=== PATIENT | male | born 1955 | race American Indian/Alaskan Native ===

== ENCOUNTER 2017-03-28 12:57 | Inpatient (IN) | payer BC ==
[~2017-03-28] VITALS: Ht 170.2 cm; Wt 79.8 kg
[~2017-03-28 12:57] MED LIST: LEVO750T45 PO; METF-716 PO; SULF1TAB48 PO
[2017-03-28 13:00] VITALS: BP 94/61; PULSE 96; RESP 18; TEMP 97.6; O2SAT 98
--- NOTE | 2017-03-28 13:00 | NUR ---
PT. PLACED IN ROOM 6 REPORT GIVEN TO VIKI JULIEN
--- NOTE | 2017-03-28 13:05 | NUR ---
Pt placed to ER bed 06 and to gown. Pt here to have diabetic wound checked to Right foot. Pt states that he was seen by the Orthopedist on 03/25/17 and dsg was applied. Dsg removed, dry serosanguinous fluid noted to dsg. Wound to plantar aspect of foot measures 4 x 5 cm, undermining noted. Pt has no feeling to site.
--- NOTE | 2017-03-28 13:10 | NUR ---
Simona boo in ED - 03/28/17 at [address] Menendez at bedside to assess pt.
--- NOTE | 2017-03-28 13:10 | NUR ---
# 18 gauge angiocath placed to LAC. Use of asceptic technique. Opsite placed over site. Blood return noted. Blood for lab drawn from site. Flushed with 10 cc of normal saline. No evidence of infiltration noted. Patient tolerated well.
--- NOTE | 2017-03-28 13:10 | NUR ---
Dr. Rodgers at bedside to assess pt.
--- NOTE | 2017-03-28 13:15 | NUR ---
Wound cx obtained and sent to lab.
[2017-03-28 13:43] LABS: BASOPHILS # (AUTO) 0.1 K/uL (0.0-0.2); BASOPHILS % (AUTO) 0.7 % (0.0-2.0); EOSINOPHILS % (AUTO) 0.1 % (0.0-4.0); HEMATOCRIT 46.3 % (36-54); LYMPHOCYTES % (AUTO) 8.7 % (20.5-51.5); MEAN CORPUSCULAR HEMOGLOBIN 30 pg (27-31); MEAN CORPUSCULAR HGB CONC 33 % (32-36); MEAN CORPUSCULAR VOLUME 93 fL (79.0-98.0); MONOCYTES # (AUTO) 0.4 K/uL (0.0-1.0); MONOCYTES % (AUTO) 3.7 % (1.7-9.3); NEUTROPHILS # (AUTO) 9.9 K/uL (1.8-7.7); NEUTROPHILS % (AUTO) 86.8 % (40.0-70.0); PLATELET COUNT (AUTO) 225 K/uL (130-430); RED BLOOD CELL COUNT(AUTO) 4.96 MIL/uL (4.2-6.2); RED CELL DISTRIBUTION WIDTH 12.2 % (9.0-15.0); WHITE BLOOD COUNT (AUTO) 11.4 K/uL (4.8-10.8)
[2017-03-28 13:47] LABS: CALCIUM 8.5 mg/dL (8.4-11.0); CREATININE 1.25 mg/dL (0.55-1.30); POTASSIUM 3.6 mmol/L (3.5-5.1)
[2017-03-28 13:51] LABS: ALBUMIN 2.5 g/dL (3.4-4.8); INR 1.1 (0.80-1.20); PROTHROMBIN TIME 11.9 SECS (9.5-12.5); TOTAL BILIRUBIN 0.6 mg/dL (0.0-1.0); TOTAL PROTEIN, SERUM 7.7 g/dL (6.4-8.3)
--- NOTE | 2017-03-28 14:00 | NUR ---
Medication reconciliation completed with information provided by patient. Any prior medication reconciliation on file was reviewed and corrected.
[2017-03-28] MEDS ORDERED: PIPERACILLIN/TAZO 3.375 GM in NS 50 ML IV ONE (14:15)
[2017-03-28] MEDS ORDERED: NACL 0.9% 1,000 ML IV ONE (14:15)
[2017-03-28] MEDS ORDERED: VANCOMYCIN HCL 1,000 MG in NS 250 ML IV ONE (14:15)
[2017-03-28] MEDS ORDERED: VANCOMYCIN HCL 1000 MG/VIAL IV ONE (14:29)
[2017-03-28] MEDS ORDERED: PIPERACILLIN/TAZOBACTAM 3.375 GM/VIAL (ZOSYN) IV ONE (14:30)
--- NOTE | 2017-03-28 14:30 | NUR ---
Pt resting comfortably, denies c/o pain or discomfort, no needs verbalized at this time.
[2017-03-28] MEDS ORDERED: DOXY-4 PO (14:55)
[2017-03-28] MEDS ORDERED: METF1000 PO (14:55)
[2017-03-28] MEDS ORDERED: HYDR-1189 PO (14:55)
[2017-03-28] MEDS ORDERED: LISI-209 PO (14:55)
[2017-03-28] MEDS ORDERED: LIP40 PO (14:55)
[2017-03-28] MEDS ORDERED: AMI200 PO (14:55)
--- NOTE | 2017-03-28 15:10 | NUR ---
Patient will be admitted to care of Dr. Ernandez. Admitted to Med/Surg unit. Will go to room 102B. Belongings list completed. Summary report printed. Report will be given at bedside.
[2017-03-28 15:15] LABS: BILIRUBIN,URINE NEGATIVE (NEGATIVE); BLOOD, URINE 2+ (NEGATIVE); CLARITY/URINE CLEAR (CLEAR); COLOR,URINE YELLOW (YELLOW); GLUCOSE,URINE 3+ (NEGATIVE); KETONES,URINE 1+ (NEGATIVE); LEUKOCYTE ESTERASE ,URINE NEGATIVE (NEGATIVE); NITRITE, URINE NEGATIVE (NEGATIVE); PROTEIN URINE 2+ (NEGATIVE); UROBILINOGEN,URINE 0.2 (0.2-1.0)
[2017-03-28 15:31] VITALS: BP 136/75; PULSE 94; RESP 18; TEMP 95.9; O2SAT 99
[2017-03-28 15:34] LABS: BACTERIA,URINE RARE /HPF (None Seen); RBC,URINE 20-50 /HPF (0-3); WBC,URINE 0-3 /HPF (0-3)
--- NOTE | 2017-03-28 15:49 | NUR ---
Consult was called Re: Diabetic Foot Ulcer spoke with Ny from Dr Whitley office .
--- NOTE | 2017-03-28 16:16 | NUR ---
Consult was called Re:Diabetic Foot Ulcer spoke with Dr Shahbaz henriquez .
[2017-03-28 16:31] VITALS: BP 132/72; PULSE 92; RESP 17; TEMP 97.4; O2SAT 99
[2017-03-28] MEDS ORDERED: ACETAMINOPHEN 325 MG TABLET PO PRN (19:30)
[2017-03-28] MEDS ORDERED: NACL 0.9% 1,000 ML IV SCH (19:30)
[2017-03-28] MEDS ORDERED: DEXTROSE 50% JECT 50 ML DISP.SYRIN IVP PRN (19:30)
[2017-03-28] MEDS ORDERED: MORPHINE 2 MG/ML INJ. SYRINGE IVP PRN (19:30)
[2017-03-28] MEDS ORDERED: MORPHINE 4 MG/ML INJ. SYRINGE IVP PRN (19:30)
--- NOTE | 2017-03-28 20:00 | NUR ---
NOTES; SEEN PT IN BED, A/A/O X3. NO ACUTE DISTRESS NOTED. VITAL SIGNS STABLE, AFEBRILE. IV SALINE LOCK TO THE LEFT AC, PATENT. WILL START ORDERED IVF. RT FOOT WOUND WITH DRESSING CLEAN,DRY, AND INTACT. PEDAL PULSES PALPABLE. PT DENIES ANY PAIN AT THIS TIME. INSTRUCTED PT ON THE USE OF CALL LIGHT. PT VERBALIZED UNDERSTANDING. BED LOCKED AND IN LOW POSITION, SIDE RAILS UP X3, BED ALARM ON. CALL LIGHT WITHIN REACH. WILL CONTINUE TO MONITOR.
[2017-03-28] MEDS: LACTOBACILLUS RHAMNOSUS GG 1 CAP CAPSULE PO SCH (20:40)
[2017-03-28] MEDS: INSULIN REGULAR, HUMAN 100 UNITS/ML, 10 ML VIAL (novoLIN R) SUBCUT PRN (21:02)
--- NOTE | 2017-03-28 21:08 | NUR ---
NOTES; BLOOD SUGAR FOUND TO BE 275. ORDERED INSULIN ADMINISTERED PER SLIDING SCALE ORDER. SCHEDULED PO MEDICATION ADMINISTERED. PT TOLERATED MEDS WELL.
--- NOTE | 2017-03-28 21:09 | NUR ---
NOTES; OFFERED SANDWICH, PT REFUSED. MILK PROVIDED, PT DRANK ALL. INSTRUCTED PT TO USE CALL LIGHT TO CALL FOR ANY NEED TO ASSIST. T VERBALIZED UNDERSTANDING. BED LOCKED AND IN LOW POSITION, SIDE RAILS UP X3. BED ALARM ON. CALL LIGHT WITHIN REACH. WILL CONTINUE TO MONITOR.
--- NOTE | 2017-03-28 22:00 | NUR ---
NOTES: pt. sleeping when checked. IVF disconnected, due IVPB . check IV site and unable to flush, infiltrated. pt. awakened, awkae, alert, oriented. noted dressing on rt. foot. denies any discomfort at this time, feels cold, will adjust room temperature. call light within reach.
[2017-03-28] MEDS: PIPERACILLIN/TAZO 3.375/DEX-IS 50 ML IV SCH (22:20)
--- NOTE | 2017-03-28 22:30 | NUR ---
NOTES: started new IV on left hand with gauge 20 and IVF NS restarted at 100 cc/hr. Due IV antibiotics given. pt. resting comfortably with warm blanket.
[2017-03-28] MEDS: VANCOMYCIN HCL 750 MG in NS 250 ML IV SCH (22:31)
[2017-03-28 23:18] VITALS: BP 142/84; PULSE 132; RESP 16; TEMP 99.6; O2SAT 94
[2017-03-29] VITALS (7 sets, daily range): BP systolic 95–143; BP diastolic 56–81; PULSE 68–129; RESP 16–22; TEMP 97.2–100.9; O2SAT 94–100; Ht 170.2 cm; Wt 79.8 kg
[2017-03-29] MEDS ORDERED: D5NS 1,000 ML IV SCH
--- NOTE | 2017-03-29 00:20 | NUR ---
NOTES; DR. LAMBERT CALLED WITH ORDERS TO KEEP PT NPO AND CHANGE IVF TO D5NS AT 100CC/HR. RN COVERING AND CHARGE NURSE NOTIFIED.
--- NOTE | 2017-03-29 00:22 | NUR ---
paged paged for Dr Ernandez, dialed . s/w Dalia.
--- NOTE | 2017-03-29 00:25 | NUR ---
NOTES; PT INFORMED TO NOT EAT ANY FOOD OR DRINK ANY LIQUID DUE TO POSSIBLE RT FOOT SURGERY IN AM. PT VERBALIZED UNDERSTANDING. PT IS NPO AT THIS TIME.
--- NOTE | 2017-03-29 00:43 | NUR ---
paged second page for Dr Ernandez, dialed . s/w Dalia.
--- NOTE | 2017-03-29 01:14 | NUR ---
NOTES; PT HAS A TEMP OF 100.9, HR 129. PT IS SHIVERING, REFUSING COOLING MEASURES. RN COVERING NOTIFIED, PRN ORDER OF TYLENOL WITH NO INDICATION OF FEVER. DR SAUNDERS PAGED TO BE NOTIFIED. WAITING MD TO CALL BACK.
--- NOTE | 2017-03-29 01:22 | NUR ---
NOTES; PER DR. CHIP FONSECA TO GIVE PT TYLENOL WITH SMALL SIP OF WATER.
--- NOTE | 2017-03-29 01:22 | NUR ---
NOTES; DR. SAUNDERS CALLED BACK. INFORMED MD ABOUT PT ELEVATED TEMPERATURE OF 100.9 AND HR OF 129. TYLENOL 650MG PO FOR 100.5 FEVER AND ABOVE OR MILD PAIN LEVEL OF 1-3.
[2017-03-29] MEDS ORDERED: ACETAMINOPHEN 325 MG TABLET PO PRN (01:45)
--- NOTE | 2017-03-29 02:00 | NUR ---
ROUNDS: pt. sleeping when made rounds, covered with blanket. denies any pain at this time.
--- NOTE | 2017-03-29 02:50 | NUR ---
NOTES; TEMPERATURE IS 98.0
[2017-03-29] MEDS: PIPERACILLIN/TAZO 3.375/DEX-IS 50 ML IV SCH ×4 (03:37→17:30)
--- NOTE | 2017-03-29 04:00 | NUR ---
NOTES; PT APPEARED TO BE SLEEPING, EYES CLOSED. RESPIRATION EVEN AND UNLABORED. SAFETY MEASURES IN PROGRESS.
[2017-03-29] MEDS: INSULIN REGULAR, HUMAN 100 UNITS/ML, 10 ML VIAL (novoLIN R) SUBCUT PRN ×3 (05:54→16:57)
--- NOTE | 2017-03-29 05:58 | NUR ---
paged paged for Dr Ernandez, dialed . s/w Lorenzo.
--- NOTE | 2017-03-29 06:13 | NUR ---
NOTES; CRITICAL BLOOD CULTURE RESULTS RECEIVED. DR SAUNDERS PAGED TO BE NOTIFIED. BLOOD SUGAR FOUND TO BE 272. INSULIN ADMINISTERED PER SLIDING SCALE ORDER.
--- NOTE | 2017-03-29 06:36 | NUR ---
NOTES; DR SAUNDERS CALLED BACK. SPOKE WITH MD AND INFORMED MD ABOUT POSITIVE BLOOD CULTURE GRAM POSITIVE COCCI IN CHAINS IN AEROBIC AND ANAEROBIC BOTTLE. NEW ORDER OF VANCOMYCIN 1GM IVPB EVERY 12HRS RECEIVED. RN COVERING AND CHARGE NURSE NOTIFIED. .
[2017-03-29] MEDS ORDERED: VANCOMYCIN HCL 1 GM/NS PREMIX 250 ML IV SCH (06:45)
--- NOTE | 2017-03-29 07:15 | NUR ---
Initial notes: pt on bed sleeping. stable. i.v. access patent. call light within reach. report received from date night caregiver.
--- NOTE | 2017-03-29 07:30 | NUR ---
Wolf rounds: Seen by Dr. Hartmann and talk to pt.
--- NOTE | 2017-03-29 09:02 | NUR ---
Nutrition Update Kavon Scale 17 noted. Pt admitted for diabetic foot ulcer. Diet: NPO BMI: 27.7 kg/m2 RD to follow per nutrition care standards.
[2017-03-29] MEDS: LACTOBACILLUS RHAMNOSUS GG 1 CAP CAPSULE PO SCH ×2 (09:16→21:06)
[2017-03-29] MEDS: VANCOMYCIN HCL 750 MG in NS 250 ML IV SCH ×2 (09:16→21:06)
[2017-03-29] MEDS: ATORVASTATIN 20 MG TABLET PO SCH (09:16)
[2017-03-29] MEDS: AMIODARONE HCL 200 MG TABLET PO SCH (09:17)
--- NOTE | 2017-03-29 09:30 | NUR ---
Wolf rounds: seen by Dr. Ernandez and talk to pt.
[2017-03-29] MEDS: LISINOPRIL 5 MG TABLET PO SCH (09:31)
--- NOTE | 2017-03-29 10:12 | NUR ---
ID Consult: for Dr. Caraballo, regarding sepsis, ordered by Dr. Ernandez, spoke with Monique.
[2017-03-29 10:29] LABS: CREATININE 1.19 mg/dL (0.55-1.30); POTASSIUM 3.1 mmol/L (3.5-5.1)
[2017-03-29 10:34] LABS: ALBUMIN 2.1 g/dL (3.4-4.8); TOTAL BILIRUBIN 0.5 mg/dL (0.0-1.0); TOTAL PROTEIN, SERUM 6.9 g/dL (6.4-8.3)
--- NOTE | 2017-03-29 11:00 | NUR ---
CTA: pt went to radiology lab for CTA lower extremity wth/without contrast. Addendum: 03/29/17 at 1303 by Elizabeth Duncan RN consent signed by the pt.
[2017-03-29] MEDS ORDERED: IOHEXOL 350 mgI/mL, 150 ML INFUS..BTL IV ONE (11:28)
--- NOTE | 2017-03-29 12:58 | NUR ---
ATTENDING , DR SAUNDERS CALLED RE: LOW K LEVEL (3.1). SPOKE TO LUANA
--- NOTE | 2017-03-29 13:00 | NUR ---
lab result: paged Dr. Ernandez for low potassium. waiting for call back.
--- NOTE | 2017-03-29 13:13 | NUR ---
rounds: back in his room. MRI done also.
--- NOTE | 2017-03-29 14:13 | NUR ---
rounds: pt on bed watching t.v. no distress noted.
--- NOTE | 2017-03-29 15:05 | NUR ---
Wolf rounds: seen by Dr. Whitley and talk to pt and family.
[2017-03-29] MEDS: POTASSIUM CHLORIDE 20 MEQ TAB.PRT.SR PO SCH ×2 (16:02→21:06)
[2017-03-29] MEDS: KCL 20 mEq in NS 1000 mL 1,000 ML IV SCH (16:02)
--- NOTE | 2017-03-29 17:33 | NUR ---
rounds: pt on bed watching. t.v. with daughter at bedside.
--- NOTE | 2017-03-29 18:57 | NUR ---
closing notes: pt on bed resting. stable. needs attended. call light within reach. report will be given to shift mgr.
--- NOTE | 2017-03-29 19:45 | NUR ---
INITIAL NOTE PT. RECEIVED AA0X4, NO S/S OF SOB OR DISTRESS NOTED. BLOOD PRESSURE IS ON THE LOWER END, 95/60, PLACED PT. IN THE [place] POSITION AND WILL MONITOR CLOSELY FOR ANY CHANGES. IV ACCESS TO LEFT FOREARM. NO REDNESS OR SWELLING TO THE SITE. IV FLUIDS INFUSING WELL ORDERED. DIABETIC ULCER TO RIGHT FOOT NOTED WITH DRESSING THAT IS CLEAN, DRY AND INTACT. WILL CLEAN WOUND AND CHANGE DRESSING NECESSARY. ELEVATED PT. HEELS ON A PILLOW TO OFFLOAD PRESSURE AREAS. PLAN OF CARE HAS BEEN DISCUSSED. PT. AWARE THAT HE SHOULD BE NPO PAST MIDNIGHT FOR UPCOMING PROCEDURE TOMORROW. ENCOURAGED PT. TO USE CALL LIGHT AND CALL FOR ANY ASSISTANCE. VERBALIZES UNDERSTANDING. WILL CONT. TO MONITOR FOR ANY CHANGES. SAFETY AND FALL PRECAUTIONS IN PLACE. CALL LIGHT IN REACH.
[2017-03-29] MEDS ORDERED: COMMUNICATION ORDER XX ONE (21:30)
--- NOTE | 2017-03-29 22:05 | NUR ---
rounds pt. provided with turkey sandwich. no complaints of pain at this time. pt. aware of need to be npo past midnight. will cont. to monitor for changes. safety and fall precautions in place. call light in reach.
--- NOTE | 2017-03-29 23:19 | NUR ---
rn notes pt. resting in bed watching television. no s.s of sob or distress noted. report given to lyn jones who will resume care of pt. all needs met at this time. safety and fall precautions in place.
--- NOTE | 2017-03-29 23:20 | NUR ---
i have assumed the care of the pt.for the remainder of the shift.anna provided the pt's report pt.to submit to surgery in the am:03/30/17 per :rt.foot diabetic ulcer.i will review the pre-op paper work.iv fluids infusing.reiterated to the pt.that the pre-op diet is nothing by mouth.no pain, nausea@this hour.
[2017-03-30] VITALS (7 sets, daily range): BP systolic 90–130; BP diastolic 52–73; PULSE 80–94; RESP 18–22; TEMP 96.9–99; O2SAT 93–98
--- NOTE | 2017-03-30 | NUR ---
pt.assessed.v/s assessed:values w/in normal limits.no c/o pain,nausea.pt.is ambulatory.iv fluids infusing/pt/presents stable staus:room air:o2 sat%=98%.federico light w/in pt's reach.jb,paramjit vidal. Addendum: 03/30/17 at 0642 by Gil Weeks RN ivpb;abx administered.
[2017-03-30] MEDS: PIPERACILLIN/TAZO 3.375/DEX-IS 50 ML IV SCH ×3 (00:11→12:37)
--- NOTE | 2017-03-30 02:00 | NUR ---
pt.assessed.pt.presents quiescent affect;calm,asleep.no distres/discomfort manifested. call light w/in pt's reach.
--- NOTE | 2017-03-30 04:00 | NUR ---
pt.assessed.v/s assessed.values w/in normal limits.i have assisted the pt.to the restroom . gait steady.chg bath attended to for surgery this am.
[2017-03-30] MEDS: KCL 20 mEq in NS 1000 mL 1,000 ML IV SCH ×3 (05:15→21:18)
--- NOTE | 2017-03-30 06:32 | NUR ---
pt.prepared for surgery.ekg,labs ordered.paper work attended to.laura erazo;rn assisted w/the paper work. blood glucose:204mg/dl this am.i have applied the allergy band. Addendum: 03/30/17 at 0642 [place] [id number] am abx;ivpb administered.
--- NOTE | 2017-03-30 07:30 | NUR ---
Initial Note Patient A/O x4. Respirations even and unlabored. IV access patent; infusing per MD orders. Use of call light reviewed with patient. Encouraged patient to call for assistance when needed. Fall and safety precautions in place.
[2017-03-30] MEDS ORDERED: DEXAMETHASONE SOD PHOSPHATE 4 MG/ML VIAL IVP ONE (08:00)
[2017-03-30 08:02] LABS: BASOPHILS % (AUTO) 0.5 % (0.0-2.0); EOSINOPHILS # (AUTO) 0.1 K/uL (0.0-0.4); EOSINOPHILS % (AUTO) 1.1 % (0.0-4.0); HEMATOCRIT 39.2 % (36-54); LYMPHOCYTES # (AUTO) 1.1 K/uL (1.0-5.5); LYMPHOCYTES % (AUTO) 16.5 % (20.5-51.5); MEAN CORPUSCULAR HEMOGLOBIN 31 pg (27-31); MEAN CORPUSCULAR HGB CONC 33 % (32-36); MEAN CORPUSCULAR VOLUME 94 fL (79.0-98.0); MONOCYTES # (AUTO) 0.8 K/uL (0.0-1.0); MONOCYTES % (AUTO) 11.8 % (1.7-9.3); NEUTROPHILS # (AUTO) 4.9 K/uL (1.8-7.7); NEUTROPHILS % (AUTO) 70.1 % (40.0-70.0); PLATELET COUNT (AUTO) 200 K/uL (130-430); RED BLOOD CELL COUNT(AUTO) 4.18 MIL/uL (4.2-6.2); RED CELL DISTRIBUTION WIDTH 12.7 % (9.0-15.0); WHITE BLOOD COUNT (AUTO) 6.9 K/uL (4.8-10.8)
[2017-03-30 08:05] LABS: INR 1.1 (0.80-1.20); PROTHROMBIN TIME 11.4 SECS (9.5-12.5)
--- NOTE | 2017-03-30 08:08 | NUR ---
Notes Patient transported to OR for surgery. No acute distress noted.
[2017-03-30 08:10] LABS: POTASSIUM 4.2 mmol/L (3.5-5.1)
[2017-03-30 08:11] LABS: CREATININE 1.03 mg/dL (0.55-1.30)
[2017-03-30] MEDS: POTASSIUM CHLORIDE 20 MEQ TAB.PRT.SR PO SCH ×2 (09:00→15:41)
[2017-03-30] MEDS: LISINOPRIL 5 MG TABLET PO SCH (09:00)
[2017-03-30] MEDS ORDERED: ASPIRIN 325 MG TABLET (ECOTRIN) PO ONE (10:30)
[2017-03-30] MEDS ORDERED: CILOSTAZOL 50 MG TABLET (PLETAL) PO ONE (10:30)
[2017-03-30] MEDS ORDERED: LR 1,000 ML IV SCH (10:37)
[2017-03-30] MEDS ORDERED: HYDROmorphone 1 MG INJ. 1 MG/ML AMPUL IVP PRN (10:45)
[2017-03-30] MEDS ORDERED: MEPERIDINE HCL/PF 25 MG/ML DISP.SYRIN IVP PRN (10:45)
[2017-03-30] MEDS ORDERED: HYDROmorphone 2 MG/ML VIAL IVP PRN ×2 (10:45)
--- NOTE | 2017-03-30 11:51 | NUR ---
Notes Patient back in room. A/O x 4. Respirations even and unlabored. Incentive spirometer and teaching provided by RT. Patient able to provide return demonstration correctly and achieved 1999. Denies acute pain. Pedal pulses present with use of Doppler. Patient verbalizes having sensation to bilateral lower extremities. Dressing to right foot; clean, free of drainage. Encouraged patient to call for assistance when needed. Call light in reach.
[2017-03-30] MEDS: ATORVASTATIN 20 MG TABLET PO SCH (12:40)
[2017-03-30] MEDS: LACTOBACILLUS RHAMNOSUS GG 1 CAP CAPSULE PO SCH ×2 (12:40→21:01)
[2017-03-30] MEDS: AMIODARONE HCL 200 MG TABLET PO SCH (12:41)
[2017-03-30] MEDS: VANCOMYCIN HCL 750 MG in NS 250 ML IV SCH (12:48)
[2017-03-30] MEDS: INSULIN REGULAR, HUMAN 100 UNITS/ML, 10 ML VIAL (novoLIN R) SUBCUT PRN ×3 (12:57→20:59)
--- NOTE | 2017-03-30 14:39 | NUR ---
Notes Patient continues to deny pain. Sensation intact to bilateral lower extremities. Patient able to wiggle toes. Bilateral lower extremities warm to touch.
--- NOTE | 2017-03-30 16:01 | NUR ---
Notes Patient continues to deny pain. Sensation intact to bilateral lower extremities. Patient able to wiggle toes. Bilateral lower extremities warm to touch. Dressings are clean dry and intact.
[2017-03-30] MEDS: AMPICILLIN SODIUM/SULBACTAM NA 3 GM in NS 100 ML IV SCH ×2 (17:31→23:34)
--- NOTE | 2017-03-30 18:40 | NUR ---
Closing Notes Patient continues to deny pain. Sensation intact to bilateral lower extremities. Patient able to wiggle toes. Bilateral lower extremities warm to touch. Dressings are clean dry and intact. Needs met throughout shift. Will continue to monitor until patient care is endorsed to oncoming shift nurse.
--- NOTE | 2017-03-30 19:45 | NUR ---
NOTES; SEEN PT IN BED, A/A/O X4. NO APPARENT DISTRESS NOTED. VITAL SIGNS STABLE, AFEBRILE. RT PEDAL PULSE PALPABLE WITH DOPPLER. RT FOOT AND RT INNER LEG WITH DRESSING CLEAN,DRY, AND INTACT. RT FOOT ELEVATED ON PILLOW SUPPORT. SCD TO THE LEFT LEG. ORDERED IVF INFUSING WELL ON THE LEFT UPPER ARM, GAUGE 18, PATENT. NO SIGNS OF INFECTION NOTED ON IV SITE. PT DEMONSTRATED IS UP TO 2000cc. EDUCATED PT TO USE I S X10 PER HR WHILE AWAKE. PT VERBALIZED UNDERSTANDING. DENIES ANY PAIN AT THIS TIME. INSTRUCTED PT ON THE USE OF CALL LIGHT. PT VERBALIZED UNDERSTANDING. BED LOCKED AND IN LOW POSITION, SIDE RAILS UP X3, BED ALARM ON, CALL LIGHT WITHIN REACH. WILL CONTINUE TO MONITOR.
[2017-03-30] MEDS: CILOSTAZOL 50 MG TABLET (PLETAL) PO SCH (21:01)
--- NOTE | 2017-03-30 21:10 | NUR ---
NOTES; BLOOD SUGAR FOUND TO BE 452. SCHEDULED LEVEMIR INSULIN AND SLIDING SCALE INSULIN ADMINISTERED PER MD ORDER. DR. BCUIO PAGED TO BE NOTIFIED PER SLIDING SCALE ORDER ORDER. WAITING FOR MD TO CALL BACK. CHARGE NURSE AND RN COVERING NOTIFIED.
--- NOTE | 2017-03-30 21:11 | NUR ---
Georgina Whitley spoke with Rodrigue
--- NOTE | 2017-03-30 21:14 | NUR ---
NOTES; SCHEDULED PO MEDS ADMINISTERED.
--- NOTE | 2017-03-30 21:25 | NUR ---
NOTES; DR. BUCIO CALLED, SPOKE WITH MD AND NOTIFIED ABOUT PT BLOOD SUGAR OF 452; WITH ADMINISTERED ORDERED INSULIN SLIDING SCALE COVERAGE AND SCHEDULED INSULIN COVERAGE. NO NEW ORDERS RECEIVED. CHARGE NURSE AND RN COVERING NOTIFIED.
--- NOTE | 2017-03-30 23:00 | NUR ---
NOTES; IN BED WATCHING TV, NO ACUTE DISTRESS NOTED. DENIES ANY PAIN AT THIS TIME. SAFETY MEASURES IN PROGRESS.
--- NOTE | 2017-03-31 01:00 | NUR ---
NOTES; APPEARED TO BE SLEEPING, EYES CLOSED. RESPIRATION EVEN AND UNLABORED. SAFETY MEASURES IN PROGRESS.
[2017-03-31 01:04] VITALS: BP 134/82; PULSE 99; RESP 15; TEMP 97.8; O2SAT 100
--- NOTE | 2017-03-31 03:00 | NUR ---
NOTES; APPEARED TO BE SLEEPING, EYES CLOSED. RESPIRATION EVEN AND UNLABORED. SAFETY MEASURES IN PROGRESS.
[2017-03-31 05:02] VITALS: BP 125/66; PULSE 107; RESP 16; TEMP 99.1; O2SAT 99
--- NOTE | 2017-03-31 05:10 | NUR ---
NOTES; APPEARED TO BE SLEEPING, EYES CLOSED. RESPIRATION EVEN AND UNLABORED. SAFETY MEASURES IN PROGRESS.
[2017-03-31] MEDS: AMPICILLIN SODIUM/SULBACTAM NA 3 GM in NS 100 ML IV SCH ×4 (06:04→23:31)
[2017-03-31] MEDS: INSULIN REGULAR, HUMAN 100 UNITS/ML, 10 ML VIAL (novoLIN R) SUBCUT PRN ×5 (06:25→21:08)
[2017-03-31] MEDS: KCL 20 mEq in NS 1000 mL 1,000 ML IV SCH (06:48)
--- NOTE | 2017-03-31 07:07 | NUR ---
NOTES; Denies any pain at this time. Sensation intact to bilateral lower extremities. Patient able to wiggle toes. Bilateral lower extremities warm to touch. Wound dressing with serosanguineous dry stain to the left foot dressing. All needs met throughout shift. Safety measures maintained. Will continue to monitor .
--- NOTE | 2017-03-31 07:10 | NUR ---
REPORT: HAD REPORT FROM NIGHT NURSE AT THE BEDSIDE.
[2017-03-31 08:00] VITALS: BP 96/58; PULSE 95; RESP 18; TEMP 97.1; O2SAT 95
--- NOTE | 2017-03-31 08:00 | NUR ---
nrsg: RECEIVED PATIENT FROM NIGHT ROUSTABOUT HAND, LYING ON BED, AWAKE,ALERT AND ORIENTED X 4,RESPIRATION EVEN AND UNLABORED. LUNGS CLEAR BILATERAL. ABDOMEN SOFT WITH BOWEL SOUND X 4 QUADRANTS, NO PAIN, HAD DRESSING ON THE LATERAL THIGH AND ON THE RIGHT FOOT INTACT AND INPLACED . RIGHT LEG ELEVATED WITH PILLOW. HAD DISCOLORATION ON BOTH LOWER EXTREMITIES AND HAD TRACE EDEMA ON BOTH LES. IV SITE ON THE LEFT UPPER ARM INTACT AND INPLACED AND IVF ON PROGRESS . CALL LIGHT WITHIN REACH.
[2017-03-31 08:08] LABS: BASOPHILS % (AUTO) 0.1 % (0.0-2.0); EOSINOPHILS % (AUTO) 0.1 % (0.0-4.0); HEMATOCRIT 32.5 % (36-54); HEMOGLOBIN 10.8 g/dL (14.0-18.0); LYMPHOCYTES % (AUTO) 8.6 % (20.5-51.5); MEAN CORPUSCULAR HEMOGLOBIN 32 pg (27-31); MEAN CORPUSCULAR HGB CONC 33 % (32-36); MEAN CORPUSCULAR VOLUME 95 fL (79.0-98.0); MONOCYTES # (AUTO) 0.5 K/uL (0.0-1.0); MONOCYTES % (AUTO) 4.1 % (1.7-9.3); NEUTROPHILS # (AUTO) 10.5 K/uL (1.8-7.7); PLATELET COUNT (AUTO) 214 K/uL (130-430); RED BLOOD CELL COUNT(AUTO) 3.42 MIL/uL (4.2-6.2); RED CELL DISTRIBUTION WIDTH 12.6 % (9.0-15.0)
[2017-03-31 08:09] LABS: ALBUMIN 1.8 g/dL (3.4-4.8); CALCIUM 7.3 mg/dL (8.4-11.0); CREATININE 1.22 mg/dL (0.55-1.30); POTASSIUM 4.3 mmol/L (3.5-5.1); TOTAL BILIRUBIN 0.2 mg/dL (0.0-1.0)
[2017-03-31] MEDS: LACTOBACILLUS RHAMNOSUS GG 1 CAP CAPSULE PO SCH ×2 (09:01→21:00)
[2017-03-31] MEDS: ATORVASTATIN 20 MG TABLET PO SCH (09:01)
[2017-03-31] MEDS: ASPIRIN 325 MG TABLET (ECOTRIN) PO SCH (09:01)
[2017-03-31] MEDS: AMIODARONE HCL 200 MG TABLET PO SCH (09:01)
[2017-03-31] MEDS: LISINOPRIL 5 MG TABLET PO SCH (09:02)
[2017-03-31] MEDS: CILOSTAZOL 50 MG TABLET (PLETAL) PO SCH ×2 (09:02→21:00)
--- NOTE | 2017-03-31 09:35 | NUR ---
ROUNDS: SEEN AND EXAMINED BY DR. LUCERO WITH NEW ORDERS.
--- NOTE | 2017-03-31 09:41 | NUR ---
Assessment rounds. Needs met at this time. Continue to monitor for discharge plan and iv meds.
--- NOTE | 2017-03-31 09:42 | NUR ---
PAGED: [facility] WAS CALLED REQUESTED BY DR. LUCERO AND ANSWERING SERVICE WLL PAGE .WILL WAIT FOR THE RETURN CALL.
[2017-03-31 09:48] LABS: PROTHROMBIN TIME 10.6 SECS (9.5-12.5)
[2017-03-31 10:03] LABS: NEUTROPHILS % (AUTO) 87.1 % (40.0-70.0)
--- NOTE | 2017-03-31 10:06 | NUR ---
CONSENT: CONSENT FOR PICC LINE INSERTION WAS SIGNED BY PATIENT.
--- NOTE | 2017-03-31 10:21 | NUR ---
picc nurse: PICC LINE NURSE CALLED AND SOME INFORMATION AND WILL BE HERE IN THE AFTERNOON.
--- NOTE | 2017-03-31 12:10 | NUR ---
PICC LINE: PICC LINE INSERTION IS ABOUT TO START AT THE BEDSIDE BY PICC LINE NURSE.
[2017-03-31 12:30] VITALS: BP 108/62; PULSE 86; RESP 15; TEMP 98.3; O2SAT 98
--- NOTE | 2017-03-31 12:32 | NUR ---
Patient getting picc line at this time. Will attempt to hang abx at later time.
--- NOTE | 2017-03-31 13:00 | NUR ---
PICC LINE: PICC LINE INSERTION FINISHED , ARM CIRCUMFERENCE 28 CM AND EXTERNAL LENGTH 2 CM.AND OK TO USE PER PICC LINE NURSE.
--- NOTE | 2017-03-31 13:20 | NUR ---
ROUNDS: SEEN BY DR. BUCIO WITH NEW ORDERS.
--- NOTE | 2017-03-31 14:00 | NUR ---
SL: SALINE LOCK IV, FLUSHES WELL.
[2017-03-31] MEDS: NORMAL SALINE 5 ML DISP.SYRIN IVF SCH ×2 (14:18→21:11)
[2017-03-31 16:01] VITALS: BP 117/64; PULSE 89; RESP 15; TEMP 97.9; O2SAT 99
--- NOTE | 2017-03-31 16:09 | NUR ---
ACTIVITY: RESTING ON BED AND TRYING TO TAKE A LITTLE NAP PER PATIENT, NO PAIN . RIGHT LEG ELEVATED WITH 2 PILLOWS. DRESSING ON THE FOOT, RIGHT LEG ANE RIGHT THIGH INTACT AND INPLACED. CALL LIGHT WITHIN REACH.
--- NOTE | 2017-03-31 18:32 | NUR ---
CLOSING: RESTING ON BED ,WATCHING TV ,NO PAIN . IV ON LEFT UPPER ARM INTACT AND INPLACED, PICC LINE ON THE RIGHT UPPER ARM INTACT AND INPLACED AND SALINE LOCK. RIGHT FOOT ELEVATED WITH PILLOW WITH TRACE EDEMA . RIGHT LEG AND RIGHT THIGH DRESSING DRY AND INTACT.CALL LIGHT WITHIN REACH
--- NOTE | 2017-03-31 19:10 | NUR ---
OPENING NOTES PATIENT IS AOX4, SITTING UP IN BED WATCHING TELEVISION. PT DENIES PAIN. PICC LINE SALINE LOCK, IV PATENT. THE THREE DRESSINGS ON HIS RIGHT LEG, THIGH, AND FOOT ARE DRY AND INTACT. FALL PRECAUTIONS IN PLACE. CALL LIGHT WITHIN REACH.
--- NOTE | 2017-03-31 19:17 | NUR ---
REPORT: GAVE REPORT AT THE BEDSIDE USING SBAR REPORT.
[2017-03-31 20:00] VITALS: BP 134/76; PULSE 108; RESP 18; TEMP 98.4; O2SAT 97
--- NOTE | 2017-03-31 21:14 | NUR ---
ACCUCHECK BLOOD SUGAR WAS 236, SLIDING SCALE INSULIN PROVIDED FOR COVERAGE PER ORDERS.
--- NOTE | 2017-03-31 23:00 | NUR ---
ROUNDS PATIENT IS SLEEPING WITH VISIBLE RISE AND FALL OF CHEST NOTED. NO ACUTE S/S OF DISTRESS. FALL PRECAUTIONS IN PLACE, CALL LIGHT WITHIN REACH. WILL CONTINUE TO MONITOR.
[2017-04-01 01:32] VITALS: BP 143/76; PULSE 97; RESP 16; TEMP 97.8; O2SAT 100
--- NOTE | 2017-04-01 02:23 | NUR ---
WOUND DRESSING SOILED PATIENT REPORTED HE WAS HALF ASLEEP WHEN HE ATTEMPTED TO MOVE TO THE SIDE OF THE BED AND USE THE URINAL. PATIENT STATES HE SPILLED THE URINAL ON HIMSELF, THE FLOOR, AND ON HIS FOOT DRESSING. DRESSING ON THE FOOT WAS SOILED WITH URINE AND HAD TO BE REPLACED. PACKING WAS LEFT UNCHANGED, 4X4 WAS REPLACED WELL THE CURLEX. PATIENT TOLERATED WELL. THE PICC LINE DRESSING WAS CLEANED WITH ALCOHOL AND FLUSHED, PATENT, AND MEASURED AT 2CM AND 28CM ARM CIRCUMFERENCE. FALL PRECAUTIONS IN PLACE, CALL LIGHT WITHIN REACH.
[2017-04-01 04:46] VITALS: BP 147/99; PULSE 120; RESP 17; TEMP 99.3; O2SAT 99
[2017-04-01] MEDS: AMPICILLIN SODIUM/SULBACTAM NA 3 GM in NS 100 ML IV SCH ×3 (05:29→17:15)
[2017-04-01] MEDS: NORMAL SALINE 5 ML DISP.SYRIN IVF SCH ×2 (05:42→15:03)
--- NOTE | 2017-04-01 05:47 | NUR ---
ACCUCHECK BLOOD SUGAR WAS 143, NO COVERAGE REQUIRED. PATIENT SLEEPING, NO S/S OF ACUTE DISTRESS NOTED. FALL PRECAUTIONS IN PLACE, CALL LIGHT WITHIN REACH.
--- NOTE | 2017-04-01 06:28 | NUR ---
CLOSING NOTES PT IS SLEEPING, WITH VISIBLE RISE AND FALL OF CHEST NOTED. PICC LINE SALINE LOCK AND PATENT. DRESSINGS ON HIS RIGHT LEG, THIGH, AND FOOT ARE DRY AND INTACT. FALL PRECAUTIONS IN PLACE. CALL LIGHT WITHIN REACH. WILL ENDORSE CARE TO DAYSHIFT NURSE.
[2017-04-01] MEDS ORDERED: HYDROcodone/ACETAMIN 5-325 MG TAB (NORCO/ VICODIN) PO PRN (07:30)
--- NOTE | 2017-04-01 08:00 | NUR ---
Initial Note Patient A/O x4. Respirations even and unlabored. IV access patent; saline locked. Dressing to right lower extremity and right leg are clean dry and intact. Use of call light reviewed with patient. Encouraged patient to call for assistance when needed. Fall and safety precautions in place.
[2017-04-01] MEDS: CILOSTAZOL 50 MG TABLET (PLETAL) PO SCH (08:49)
[2017-04-01] MEDS: ATORVASTATIN 20 MG TABLET PO SCH (08:49)
[2017-04-01] MEDS: ASPIRIN 325 MG TABLET (ECOTRIN) PO SCH (08:50)
[2017-04-01] MEDS: LACTOBACILLUS RHAMNOSUS GG 1 CAP CAPSULE PO SCH (08:50)
[2017-04-01] MEDS: LISINOPRIL 5 MG TABLET PO SCH (08:50)
[2017-04-01] MEDS: AMIODARONE HCL 200 MG TABLET PO SCH (08:51)
--- NOTE | 2017-04-01 09:45 | NUR ---
HCP/PA: CRISTÓBAL Thacker made aware discharge order to SNF. Addendum: 04/01/17 at 1144 by Soheila Reinoso DP Per CRISTÓBAL Thacker patient [facility] to [facility] [phone], [facility] [phone] on will call.
[2017-04-01 11:26] VITALS: BP 134/80; PULSE 110; RESP 19; TEMP 98.2; O2SAT 96
[2017-04-01] MEDS: INSULIN REGULAR, HUMAN 100 UNITS/ML, 10 ML VIAL (novoLIN R) SUBCUT PRN ×2 (11:37→17:25)
--- NOTE | 2017-04-01 15:35 | NUR ---
Notes Patient sleeping. Respirations even and unlabored. No acute distress noted.
--- NOTE | 2017-04-01 17:04 | NUR ---
Notes OK to discharge patient per Dr. Ernandez.
[2017-04-01 17:39] VITALS: BP 134/80; PULSE 109; RESP 18; TEMP 98.1; O2SAT 96
--- NOTE | 2017-04-01 18:57 | NUR ---
PT TRANSFERRED Report given to Aaron. Transfer packet with Transfer Orders and Medication Reconciliation form given to EMT with report. Exitcare provided. [facility] ID band removed, replaced with ID band with pt's name and . IV catheter removed, intact and dressing applied, no active bleeding. All belongings sent with patient. Patient left floor via gurney escorted by EMT in no distress.
[2017-04-01] MEDS ORDERED: ONDANSETRON HCL 4 MG/2 ML VIAL IVP ONE (18:59)
[2017-04-01] MEDS ORDERED: fentaNYL CITRATE/PF 100 MCG/2 ML AMP IVP ONE (18:59)
[2017-04-01] MEDS ORDERED: GELATIN SPONGE 100 TP ONE (18:59)
[2017-04-01] MEDS ORDERED: THROMBIN (BOVINE) 5000 UNITS/ VIAL TP ONE (18:59)
[2017-04-01] MEDS ORDERED: MIDAZOLAM HCL 5 MG/5 ML VIAL IVP ONE (18:59)
[2017-04-01] MEDS ORDERED: KETAMINE HCL 500 MG/10 ML VIAL IVP ONE (18:59)
[2017-04-01] MEDS ORDERED: SEVOFLURANE 15 MIN GAS INH ONE (18:59)
[2017-04-01] MEDS ORDERED: NS IRRIG SOLN 1000 ML IR ONE (18:59)
[2017-04-01] MEDS ORDERED: fentaNYL CITRATE 250 MCG/5 ML AMP IV ONE (18:59)
[2017-04-01] MEDS ORDERED: PROPOFOL 200MG/ 20ML VIAL (DIPRIVAN) IV ONE (18:59)
[2017-04-01] MEDS ORDERED: LR 1,000 ML IV.SOLN IV ONE (18:59)
[2017-04-01] MEDS ORDERED: ROCURONIUM BROMIDE 10 MG/ML (ZEMURON) IV ONE (18:59)
[2017-04-01] MEDS ORDERED: KETOROLAC TROMETHAMINE 30 MG VIAL IVP ONE (18:59)
== END 2017-04-01 19:00 | DRG 853 ==
LOC: SED 12:57 → SMU 14:38 → STU 03-30 12:07 → SMU 04-01 15:03
PROVIDERS: ADMIT Internal Medicine Hospice and Palliative Medicine; ATTEND Internal Medicine Hospice and Palliative Medicine
PROC: 0JBQ0ZZ Excision of Right Foot Subcutaneous Tissue and Fascia, Open Approach (ICD-10-PCS; 2017-03-30)
PROC: 041K0JL Bypass Right Femoral Artery to Popliteal Artery with Synthetic Substitute, Open Approach (ICD-10-PCS; principal; 2017-03-30 08:00)
PROC: 02HV33Z Insertion of Infusion Device into Superior Vena Cava, Percutaneous Approach (ICD-10-PCS; 2017-03-31)
PROC: B548ZZA Ultrasonography of Superior Vena Cava, Guidance (ICD-10-PCS; 2017-03-31)
DX: A40.1 Sepsis due to streptococcus, group B (principal); E43 Unspecified severe protein-calorie malnutrition; L97.409 Non-pressure chronic ulcer of unspecified heel and midfoot with unspecified severity; M86.9 Osteomyelitis, unspecified; L03.115 Cellulitis of right lower limb; E11.610 Type 2 diabetes mellitus with diabetic neuropathic arthropathy; E11.621 Type 2 diabetes mellitus with foot ulcer; E11.65 Type 2 diabetes mellitus with hyperglycemia; F17.200 Nicotine dependence, unspecified, uncomplicated; E11.42 Type 2 diabetes mellitus with diabetic polyneuropathy; E11.51 Type 2 diabetes mellitus with diabetic peripheral angiopathy without gangrene; E11.69 Type 2 diabetes mellitus with other specified complication; F10.10 Alcohol abuse, uncomplicated; I10 Essential (primary) hypertension; L97.519 Non-pressure chronic ulcer of other part of right foot with unspecified severity; B96.20 Unspecified Escherichia coli [E. coli] as the cause of diseases classified elsewhere; Z79.4 Long term (current) use of insulin; Z89.421 Acquired absence of other right toe(s); Z88.1 Allergy status to other antibiotic agents; Z68.27 Body mass index [BMI] 27.0-27.9, adult; Z79.899 Other long term (current) drug therapy
CPT/HCPCS: 36415; 71010; 73706; 73721; 80048; 80053; 81000-TC; 82962; 83605; 85025; 85610-TC; 85730-TC; 87040-TC; 87070-TC; 87075-TC; 87081; 87186-TC; 93005; 94010; 96365; 99291; C1751; C1769; J0295; J1100; J1815; J1885; J2250; J2405; J2543; J2704; J3010; J3370; J3480; J7030; J7042; J7050; J7120; Q9967

== ENCOUNTER 2018-03-21 21:44 | Inpatient (IN) | payer BC ==
[~2018-03-21] VITALS: Ht 170.2 cm; Wt 68.5 kg
[~2018-03-21 21:44] MED LIST changes: +AMI200 PO; +DOXY-4 PO; +HYDR-1189 PO; -LEVO750T45 PO; +LIP40 PO; +LISI-209 PO; +METF1000 PO; -SULF1TAB48 PO
[2018-03-21 21:50] VITALS: BP_SYST 151
[2018-03-21] MEDS ORDERED: NACL 0.9% 1,000 ML IV ONE ×2 (22:12→22:45)
[2018-03-21] MEDS ORDERED: ONDANSETRON HCL 4 MG/2 ML VIAL IVP ONE (22:15)
[2018-03-21] MEDS ORDERED: ACETAMINOPHEN 500 MG TABLET PO ONE (22:15)
[2018-03-21 22:39] LABS: BASOPHILS # (AUTO) 0.1 K/uL (0.0-0.2); EOSINOPHILS % (AUTO) 0.1 % (0.0-4.0); HEMATOCRIT 38.4 % (36-54); HEMOGLOBIN 12.8 g/dL (14.0-18.0); LYMPHOCYTES # (AUTO) 1.2 K/uL (1.0-5.5); LYMPHOCYTES % (AUTO) 9.6 % (20.5-51.5); MEAN CORPUSCULAR HEMOGLOBIN 32 pg (27-31); MEAN CORPUSCULAR HGB CONC 33 % (32-36); MEAN CORPUSCULAR VOLUME 95 fL (79.0-98.0); MONOCYTES # (AUTO) 0.8 K/uL (0.0-1.0); MONOCYTES % (AUTO) 6.1 % (1.7-9.3); NEUTROPHILS # (AUTO) 10.4 K/uL (1.8-7.7); NEUTROPHILS % (AUTO) 83.2 % (40.0-70.0); PLATELET COUNT (AUTO) 480 K/uL (130-430); RED BLOOD CELL COUNT(AUTO) 4.05 MIL/uL (4.2-6.2); RED CELL DISTRIBUTION WIDTH 12.7 % (9.0-15.0); WHITE BLOOD COUNT (AUTO) 12.5 K/uL (4.8-10.8)
[2018-03-21] MEDS ORDERED: PIPERACILLIN/TAZO 3.375 GM in NS 50 ML IV ONE (22:45)
[2018-03-21] MEDS ORDERED: VANCOMYCIN HCL 1,000 MG in NS 250 ML IV ONE (22:45)
[2018-03-21 22:56] LABS: CALCIUM 9.4 mg/dL (8.4-11.0); CREATININE 1.02 mg/dL (0.55-1.30); POTASSIUM 3.8 mmol/L (3.5-5.1)
[2018-03-21 23:00] LABS: ALBUMIN 2.4 g/dL (3.4-4.8); TOTAL BILIRUBIN 0.5 mg/dL (0.0-1.0)
[2018-03-21] MEDS ORDERED: INSULIN REGULAR, HUMAN 10 UNITS/0.1 ML INJ IVP ONE (23:00)
[2018-03-21] MEDS ORDERED: NS 500 ML IV ONE (23:00)
[2018-03-21] MEDS ORDERED: VANCOMYCIN HCL 1000 MG/VIAL IV ONE (23:29)
[2018-03-21] MEDS ORDERED: PIPERACILLIN/TAZOBACTAM 3.375 GM/VIAL (ZOSYN) IV ONE (23:29)
[2018-03-22] VITALS (7 sets, daily range): BP systolic 105–154
[2018-03-22] MEDS ORDERED: ONDANSETRON HCL 4 MG/2 ML VIAL IVP PRN (00:30)
[2018-03-22] MEDS ORDERED: PIPERACILLIN/TAZOBACTAM 3.375 GM/VIAL (ZOSYN) IV ONE (04:40)
[2018-03-22] MEDS: PIPERACILLIN/TAZO 3.375/DEX-IS 50 ML IV SCH ×3 (05:51→22:29)
[2018-03-22 06:38] LABS: BASOPHILS % (AUTO) 0.3 % (0.0-2.0); EOSINOPHILS # (AUTO) 0.1 K/uL (0.0-0.4); EOSINOPHILS % (AUTO) 0.5 % (0.0-4.0); HEMATOCRIT 37.1 % (36-54); HEMOGLOBIN 12.6 g/dL (14.0-18.0); LYMPHOCYTES # (AUTO) 1.8 K/uL (1.0-5.5); LYMPHOCYTES % (AUTO) 17.7 % (20.5-51.5); MEAN CORPUSCULAR HEMOGLOBIN 32 pg (27-31); MEAN CORPUSCULAR HGB CONC 34 % (32-36); MEAN CORPUSCULAR VOLUME 94 fL (79.0-98.0); MONOCYTES % (AUTO) 10.1 % (1.7-9.3); NEUTROPHILS # (AUTO) 7.1 K/uL (1.8-7.7); NEUTROPHILS % (AUTO) 71.4 % (40.0-70.0); PLATELET COUNT (AUTO) 429 K/uL (130-430); RED BLOOD CELL COUNT(AUTO) 3.94 MIL/uL (4.2-6.2); RED CELL DISTRIBUTION WIDTH 12.8 % (9.0-15.0)
[2018-03-22 06:54] LABS: ALBUMIN 2.1 g/dL (3.4-4.8); CALCIUM 8.9 mg/dL (8.4-11.0); CREATININE 0.93 mg/dL (0.55-1.30); POTASSIUM 3.9 mmol/L (3.5-5.1); TOTAL BILIRUBIN 0.6 mg/dL (0.0-1.0)
[2018-03-22] MEDS: VANCOMYCIN HCL 750 MG in NS 250 ML IV SCH ×2 (12:07→23:47)
[2018-03-22] MEDS: INSULIN REGULAR, HUMAN 100 UNITS/ML, 10 ML VIAL (novoLIN R) SUBCUT PRN ×3 (12:49→22:35)
[2018-03-22] MEDS ORDERED: INSULIN REGULAR, HUMAN 100 UNITS/ML, 10 ML VIAL SUBCUT SCH (17:00)
[2018-03-23] MEDS ORDERED: ACETAMINOPHEN 325 MG TABLET PO PRN (05:00)
[2018-03-23] MEDS ORDERED: HYDROcodone/ACETAMIN 5-325 MG TAB (NORCO/ VICODIN) PO PRN (05:00)
[2018-03-23] MEDS ORDERED: MORPHINE 4 MG/ML INJ. SYRINGE IVP PRN (05:00)
[2018-03-23] MEDS: PIPERACILLIN/TAZO 3.375/DEX-IS 50 ML IV SCH (05:59)
[2018-03-23] MEDS: INSULIN REGULAR, HUMAN 100 UNITS/ML, 10 ML VIAL (novoLIN R) SUBCUT PRN ×2 (06:03→11:37)
[2018-03-23 06:59] LABS: BASOPHILS % (AUTO) 0.4 % (0.0-2.0); EOSINOPHILS # (AUTO) 0.1 K/uL (0.0-0.4); EOSINOPHILS % (AUTO) 1.1 % (0.0-4.0); HEMATOCRIT 34.8 % (36-54); HEMOGLOBIN 11.8 g/dL (14.0-18.0); LYMPHOCYTES # (AUTO) 1.7 K/uL (1.0-5.5); LYMPHOCYTES % (AUTO) 17.1 % (20.5-51.5); MEAN CORPUSCULAR HEMOGLOBIN 32 pg (27-31); MEAN CORPUSCULAR HGB CONC 34 % (32-36); MEAN CORPUSCULAR VOLUME 95 fL (79.0-98.0); MONOCYTES # (AUTO) 0.8 K/uL (0.0-1.0); MONOCYTES % (AUTO) 8.2 % (1.7-9.3); NEUTROPHILS # (AUTO) 7.3 K/uL (1.8-7.7); NEUTROPHILS % (AUTO) 73.2 % (40.0-70.0); PLATELET COUNT (AUTO) 485 K/uL (130-430); RED BLOOD CELL COUNT(AUTO) 3.68 MIL/uL (4.2-6.2); RED CELL DISTRIBUTION WIDTH 12.8 % (9.0-15.0); WHITE BLOOD COUNT (AUTO) 9.9 K/uL (4.8-10.8)
[2018-03-23 07:09] LABS: CALCIUM 9.1 mg/dL (8.4-11.0); CREATININE 0.94 mg/dL (0.55-1.30); POTASSIUM 3.5 mmol/L (3.5-5.1)
[2018-03-23 07:50] VITALS: BP_SYST 127
[2018-03-23] MEDS: VANCOMYCIN HCL 750 MG in NS 250 ML IV SCH (11:38)
[2018-03-23 12:56] VITALS: BP_SYST 125
[2018-03-23 13:28] VITALS: BP_SYST 125
== END 2018-03-23 15:40 | disposition home or self-care (01) | DRG 392 ==
LOC: SED 21:44 → SMU 23:48
PROVIDERS: ADMIT Internal Medicine; ATTEND Internal Medicine
DX: R11.2 Nausea with vomiting, unspecified (principal); E11.621 Type 2 diabetes mellitus with foot ulcer; E87.1 Hypo-osmolality and hyponatremia; E78.5 Hyperlipidemia, unspecified; L97.509 Non-pressure chronic ulcer of other part of unspecified foot with unspecified severity; E11.9 Type 2 diabetes mellitus without complications; Z79.1 Long term (current) use of non-steroidal anti-inflammatories (NSAID); Z79.899 Other long term (current) drug therapy; Z79.84 Long term (current) use of oral hypoglycemic drugs; Z88.8 Allergy status to other drugs, medicaments and biological substances
CPT/HCPCS: 36415; 80048; 80053; 82962; 83605; 83690-TC; 85025; 87040-TC; 96361; 96365; 96366; 96367; 96375; 99285; J1815; J2405; J2543; J3370; J7030; J7040; J7050

== ENCOUNTER 2018-03-29 13:16 | Inpatient (IN) | payer BC ==
[~2018-03-29] VITALS: Ht 170.2 cm; Wt 77.1 kg
[2018-03-29 13:20] VITALS: BP_SYST 120
[2018-03-29] MEDS ORDERED: NS 1000 ML BAG IV ONE (13:45)
[2018-03-29 14:09] LABS: HEMATOCRIT 33.3 % (36-54); HEMOGLOBIN 11.4 g/dL (14.0-18.0); MEAN CORPUSCULAR HEMOGLOBIN 32 pg (27-31); MEAN CORPUSCULAR HGB CONC 34 % (32-36); MEAN CORPUSCULAR VOLUME 93 fL (79.0-98.0); PLATELET COUNT (AUTO) 609 K/uL (130-430); RED BLOOD CELL COUNT(AUTO) 3.58 MIL/uL (4.2-6.2); RED CELL DISTRIBUTION WIDTH 12.7 % (9.0-15.0); WHITE BLOOD COUNT (AUTO) 21.1 K/uL (4.8-10.8)
[2018-03-29 14:15] LABS: CALCIUM 10.1 mg/dL (8.4-11.0); CREATININE 1.2 mg/dL (0.55-1.30); POTASSIUM 3.5 mmol/L (3.5-5.1)
[2018-03-29 14:17] LABS: PROTHROMBIN TIME 10.4 SECS (9.5-12.5)
[2018-03-29 14:19] LABS: ALBUMIN 1.9 g/dL (3.4-4.8); TOTAL BILIRUBIN 0.6 mg/dL (0.0-1.0)
[2018-03-29 14:27] LABS: BASOPHILS % (MANUAL) 0 % (0-2); EOSINOPHILS % (MANUAL) 0 % (0-7); LYMPHOCYTES % (MANUAL) 11 % (20-46); MONOCYTES % (MANUAL) 3 % (0-11)
[2018-03-29 14:53] LABS: BILIRUBIN,URINE NEGATIVE (NEGATIVE); BLOOD, URINE 3+ (NEGATIVE); CLARITY/URINE CLOUDY (CLEAR); COLOR,URINE RED (YELLOW); GLUCOSE,URINE 3+ (NEGATIVE); KETONES,URINE 1+ (NEGATIVE); LEUKOCYTE ESTERASE ,URINE 1+ (NEGATIVE); NITRITE, URINE POSITIVE (NEGATIVE); PH,URINE 6.5 (5.0-8.0); PROTEIN URINE 2+ (NEGATIVE)
[2018-03-29 15:06] LABS: BACTERIA,URINE MANY /HPF (None Seen); RBC,URINE >100 /HPF (0-3); URINE AMORPHOUS URATE 1+ /HPF (None Seen); WBC,URINE >100 /HPF (0-3)
[2018-03-29 15:07] LABS: MUCUS,URINE None Seen /LPF (None Seen)
[2018-03-29] MEDS ORDERED: SULF1TAB48 PO (15:14)
[2018-03-29] MEDS ORDERED: AMOX1TAB14 PO (15:14)
[2018-03-29] MEDS ORDERED: VANCOMYCIN HCL 1,000 MG in D5W 250 ML IV ONE (15:30)
[2018-03-29] MEDS ORDERED: VANCOMYCIN HCL 1000 MG/VIAL IV ONE (15:30)
[2018-03-29] MEDS ORDERED: NACL 0.9% 1,000 ML IV SCH (15:45)
[2018-03-29] MEDS ORDERED: DEXTROSE 50% JECT 50 ML DISP.SYRIN IVP PRN (15:45)
[2018-03-29] MEDS ORDERED: INSULIN REGULAR, HUMAN 100 UNITS/ML, 10 ML VIAL (novoLIN R) SUBCUT PRN (15:45)
[2018-03-29 16:17] VITALS: BP_SYST 150
[2018-03-29] MEDS ORDERED: PIPERACILLIN/TAZO 3.375/DEX-IS 50 ML IV SCH (18:00)
[2018-03-30] MEDS ORDERED: AMIODARONE HCL 200 MG TABLET PO SCH (09:00)
[2018-03-30] MEDS ORDERED: ATORVASTATIN 20 MG TABLET PO SCH (09:00)
== END 2018-03-29 17:30 | disposition left against medical advice (07) | DRG 872 ==
LOC: SED 13:16 → SMU 15:21
PROVIDERS: ADMIT Internal Medicine Hospice and Palliative Medicine; ATTEND Internal Medicine Hospice and Palliative Medicine
DX: A41.9 Sepsis, unspecified organism (principal); N12 Tubulo-interstitial nephritis, not specified as acute or chronic; Z53.21 Procedure and treatment not carried out due to patient leaving prior to being seen by health care provider; Z88.1 Allergy status to other antibiotic agents; Z79.899 Other long term (current) drug therapy
CPT/HCPCS: 36415; 71045; 80053; 81000-TC; 82550-TC; 83605; 83880; 84484; 85007; 85027; 85610-TC; 85730-TC; 87040-TC; 87070-TC; 87086; 87186-TC; 93005; 96365; 96366; 96367; 96375; 99291; J1956; J2543; J3370; J7030; J7050; J7060

== ENCOUNTER 2019-01-26 16:37 | Emergency (ER) | payer BC ==
[~2019-01-26] VITALS: Ht 170.2 cm; Wt 81.6 kg
[~2019-01-26 16:37] MED LIST changes: +AMOX1TAB14 PO; -DOXY-4 PO; +DOXY100C PO; -METF-716 PO; +METF-833 PO; +SULF1TAB48 PO
[2019-01-26 17:03] VITALS: BP_SYST 186
[2019-01-26 17:51] LABS: CALCIUM 8.4 mg/dL (8.4-11.0); CREATININE 1.44 mg/dL (0.55-1.30)
[2019-01-26 18:00] LABS: ALBUMIN 2.8 g/dL (3.4-4.8); TOTAL BILIRUBIN 0.4 mg/dL (0.0-1.0)
[2019-01-26 18:19] LABS: WHITE BLOOD COUNT (AUTO) 7.9 K/uL (4.8-10.8)
[2019-01-26 18:20] LABS: EOSINOPHILS % (AUTO) 3.2 % (0.0-4.0); HEMATOCRIT 41.9 % (36-54); HEMOGLOBIN 14.4 g/dL (14.0-18.0); LYMPHOCYTES % (AUTO) 23.8 % (20.5-51.5); MEAN CORPUSCULAR HEMOGLOBIN 33 pg (27-31); MEAN CORPUSCULAR HGB CONC 34 % (32-36); MEAN CORPUSCULAR VOLUME 97 fL (79.0-98.0); MONOCYTES % (AUTO) 5.9 % (1.7-9.3); NEUTROPHILS % (AUTO) 65.7 % (40.0-70.0); PLATELET COUNT (AUTO) 247 K/uL (130-430); RED BLOOD CELL COUNT(AUTO) 4.33 MIL/uL (4.2-6.2); RED CELL DISTRIBUTION WIDTH 12.7 % (9.0-15.0)
[2019-01-26 18:21] LABS: BASOPHILS # (AUTO) 0.1 K/uL (0.0-0.2); BASOPHILS % (AUTO) 1.4 % (0.0-2.0); EOSINOPHILS # (AUTO) 0.3 K/uL (0.0-0.4); LYMPHOCYTES # (AUTO) 1.9 K/uL (1.0-5.5); MONOCYTES # (AUTO) 0.5 K/uL (0.0-1.0); NEUTROPHILS # (AUTO) 5.2 K/uL (1.8-7.7)
[2019-01-26 21:59] VITALS: BP_SYST 147
== END 2019-01-26 21:59 | disposition left against medical advice (07) ==
LOC: SED 16:37
DX: R53.1 Weakness (principal); E11.9 Type 2 diabetes mellitus without complications; Z88.1 Allergy status to other antibiotic agents; Z79.899 Other long term (current) drug therapy
CPT/HCPCS: 36415; 70450-TC; 71045; 80053; 84484; 85025; 93005; 99284